=== PATIENT | male | born 1955 | race Caucasian/White ===

== ENCOUNTER 2016-06-15 12:34 | Emergency (ER) | payer BC ==
[2016-06-15] MEDS ORDERED: ACETAMINOPHEN 500 MG TABLET PO ONE (13:24)
--- OUTSIDE RECORDS SUMMARY | 2016-06-15 14:57 | XMS REPORT | Continuity of Care Document ---
:1955 Author Organization [facility] ([facility]) Address [address] [place] [address] Phone [phone] Care Team Providers Name Role Phone Guerline Santos Primary Care Provider [phone] Source Comments This disclosure is being made pursuant to the Care Everywhere program, applicable federal and state laws, and may not contain all informaitonavailable regarding this patient.[facility] ([facility]) Active Allergies and Adverse Reactions No Known Allergies Current Medications Prescription Sig. Disp. 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 Obesity 12/06/2014 Resolved Problems Problem Noted Date Resolved Date Undiagnosed cardiac murmurs 08/12/2003 12/06/2014 Social History Tobacco Use Types Packs/Day Years Used Date Former Smoker Cigarettes Smokeless Tobacco: Never Used Tobacco Cessation:Counseling Given: Yes Comments: Last Filed Vital Signs Vital Sign Reading Time Taken Blood Pressure 122/88 12/07/2014 1:42 PM CDT Pulse 48 12/07/2014 1:42 PM CDT Temperature 35 C (95 F) 08/12/2003 11:30 AM CDT Respiratory Rate - - Height 1.727 m (5' 8") 12/07/2014 1:42 PM CDT Weight 108.41 kg (239 lb) 12/07/2014 1:42 PM CDT Body Mass Index 36.35 12/07/2014 1:42 PM CDT Oxygen Saturation - - Plan of Care Health Maintenance Due Date Last Done Comments HCV Screening 1955 Hepatitis B Vaccine (1 of 3 - Primary Series) 1955 Tdap Vaccine 1968 Lipid Disorder Screening 1975 MMR Vaccine 1975 Td Vaccine 1975 Colonoscopy 2007 Prostate Cancer Screening 2007 Influenza Vaccine: Seasonal (#1) 09/11/2015 Results from Last 3 Months Not on file
--- NOTE | 2016-06-15 15:01 | ERNOTE ---
Medical Problem HPI - Narrative Date of Service: 06/15/16 - General Chief Complaint: Fever Time Seen by Provider: 06/15/16 14:43 Source: patient Exam Limitations: no limitations - Immun/Allergies/Home Medications Immunizations: IMMUNIZATION HX Immunizations Up to Date Yes History of Influenza Vaccine Yes Hx Pneumococcal Vaccination No Allergies/Adverse Reactions: Allergies No Known Allergies Allergy (Verified 06/15/16 14:51) Home Medications: HOME MEDICATIONS Aspirin [Aspir-Low] 81 mg PO DAILY 06/15/16 [Last Taken Unknown] Metoprolol Tartrate 50 mg PO DAILY 06/15/16 [Last Taken Unknown] Piperacillin Sodium/Tazobactam [Zosyn] 3.375 gm IV ONCE #1 vial 06/15/16 [Last Taken Unknown] - History of Present History Narrative: Patient presents to the for fever. He relates he became sick Friday with a fever. [place] better the next couple of days but fells worse today. Fever here at triage. Nausea with it. Some low abdominal pain. Mild congestion, no ST. No CP or SOB. No flank pain or painful urination. He was in the hospital with his Friday but no other sick contacts. Nothing makes this better or worse. Has not seen anyone else for this. Timing: intermittent Severity: moderate Modifying Factors - (Improves): Present: other - nothing Modifying Factors - (Worsens): Present: other - nothing Review of Systems - Review of Systems Constitutional: Present: fever EYE: Present: no symptoms reported ENT: Absent: sore throat Respiratory: Absent: shortness of breath, cough Cardiology: Absent: chest pain Gastrointestinal/Abdominal: Present: nausea, abdominal pain. Absent: vomiting, diarrhea Genitourinary: Absent: dysuria Skin: Absent: rash All Other Systems: All systems neg except as marked - Patient's Past Medical History Patient History - Medical: No pertinent hx Patient History - Cardiac/Respiratory: Other Patient History - Cancer: No Hx of Cancer Patient History - Surgical Procedures: T & A Patient History - Other: None - Social History Living Situations: home Abuse History: No History of abuse Psych History: No pertinent hx Smoking Status: Former smoker Alcohol Use: rarely Drug Use: none - Immunizations Immunizations Up to Date: Yes Hx Pneumococcal Vaccination: No History of Influenza Vaccine: Yes Physical Exam - Physical Exam General Appearance: Present: alert, no apparent distress Eye Exam: Normal inspection: bilateral, PERRL: bilateral Ears, Nose, Throat: Present: normal ENT inspection Neck: Present: normal inspection Respiratory: Present: no respiratory distress, normal breath sounds, no accessory muscle use, lungs clear Cardiovascular/Chest: Present: regular rate, rhythm Gastrointestinal/Abdominal: Present: normal bowel sounds, nondistended, soft, tenderness, other - mid abdominal tendenress, no guarding or rebound. No peritoneal signs. Non-surgical exam Back Exam: Present: normal inspection. Absent: CVA tenderness (R), CVA tenderness (L) Extremity Exam: Present: normal inspection Neurological Exam: Present: alert, normal mood/affect, no motor/sensory deficits Skin Exam: Present: normal color, warm/dry. Absent: skin rash ED Progress - Results and Orders Patient's Lab Results:: I have reviewed the patient's lab results. - Vital Signs Patient's Vital Signs:: I have reviewed the patient's vital signs. Vital Signs: Vital Signs 06/15/16 06/15/16 13:13 14:40 Temperature 38.9 C H 36.9 C Pulse Rate 117 H 105 H Respiratory 16 16 Rate Blood Pressure 137/77 99/66 O2 Sat by Pulse 95 95 Oximetry - EKG EKG read: Interp. by me EKG Comments: Sinus tachycardia rate 103. Non-specific ST/T wave changes, no STEMI. - X-Ray X-Ray #1 X-Ray: chest Interpretation: Reviewed by me X-ray Comments: Official radiology report reviewed - CT/Ultrasound CT/Ultrasound Narrative: CT report reviewed - Progress/Reassessment Chief Complaint: Fever Progress Note-Subjective: 06/15/16 20:05 D/W Dr Cole. he reviewed CT and felt pt should be transferred to [facility]. D/W Dr Magdaleno at [facility] whoaccepts transfer. Stable for transfer. Discussed with patient , agreeable to transfer. Departure - Departure Clinical Impression: Fever, Abdominal mass Disposition: [facility] Condition: Stable Prescriptions: Piperacillin Sodium/Tazobactam [Zosyn] 3.375 gm IV ONCE #1 vial
[2016-06-15 15:15] LABS: Hematocrit 40.4 % (42.0-52.0); Hemoglobin 13.1 gm/dL (13.5-18.0); Mean Cell Volume 78.8 fl (78-100); Mean Corpuscular Hemoglobin 25.5 pg (27-31); Mean Corpuscular Hgb Conc 32.4 g/dl (32-36); Mean Platelet Volume 10.2 fl (6.0-9.5); Neutrophil # 8.8 K/mm3 (1.3-6.0); Neutrophil % 91.6 % (42-75.0); Platelet Count 179 K/mm3 (150-450); Red Blood Count 5.13 M/mm3 (4.7-6.0); Red Cell Distribution Width 15.9 % (11.5-14.0); White Blood Count 9.6 K/mm3 (4.0-10.5)
[2016-06-15 15:34] LABS: ALT 46 U/L (19-67); AST 42 U/L (0-48); Albumin * 3.2 gm/dl (3.4-5.0); Alkaline Phosphatase * 110 U/L (50-170); Anion Gap 17.1 mmol/L (6.8-13.8); BUN/Creatinine Ratio 15.2 (9.0-21.6); Bilirubin, Total 2.6 mg/dL (0.0-1.1); Blood Urea Nitrogen 21 mg/dL (6-23); Ca. Corrected For Albumin 9.2 mg/dL (8.4-10.2); Calcium * 8.9 mg/dL (7.9-10.9); Chloride 104 mmol/L (97-106); Glucose * 116 mg/dL (70-110); Lipase 143 U/L (73-393); Potassium 3.1 mmol/L (3.4-4.6); Sodium 141 mmol/L (132-142); Total Protein 7.4 gm/dL (6.2-8.2)
[2016-06-15 15:35] LABS: Troponin I Less than 0.017 ng/ml (0.00-0.10)
[2016-06-15] MEDS ORDERED: NORMAL SALINE 1,000 ML IV ONE ×2 (15:35→20:07)
[2016-06-15 16:04] LABS: Urine Appearance Clear; Urine Bacteria None Seen; Urine Bilirubin Negative (NEGATIVE); Urine Blood Negative /ul (NEGATIVE); Urine Color Amber; Urine Ketone Negative (NEGATIVE); Urine Nitrite Negative (NEGATIVE); Urine Protein 30 mg/dL (NEGATIVE); Urine RBC None Seen /hpf (0-5); Urine Urobilinogen >=8.0 EU/dl (NORMAL); Urine WBC 0-5 /hpf (0-5)
[2016-06-15] MEDS ORDERED: DIATRIZOATE MEGLU/DIATRIZO SOD 30 ML BTL PO ONE (16:29)
[2016-06-15] MEDS ORDERED: DIATRIZOATE MEGLU/DIATRIZO SOD 30 ML BTL ONE (16:36)
[2016-06-15] MEDS ORDERED: POTASSIUM CHLORIDE 20 MEQ TABLET.SA PO ONE (17:41)
[2016-06-15] MEDS ORDERED: POTASSIUM CHLORIDE 20 MEQ TABLET.SA ONE (17:45)
[2016-06-15] MEDS ORDERED: PIPERACILLIN SODIUM/TAZOBACTAM 3.375 GM in DEXTROSE 5 % IN WATER 100 ML IV ONE ×2 (20:07)
[2016-06-15 21:20] VITALS: BP 129/86
== END 2016-06-15 21:20 | disposition short-term general hospital (02) ==
LOC: ER 12:34
DX: R19.00 Intra-abdominal and pelvic swelling, mass and lump, unspecified site (principal); R50.9 Fever, unspecified; Z87.891 Personal history of nicotine dependence